=== PATIENT | male | born 1980 | race Caucasian/White ===

== ENCOUNTER 2017-10-14 12:33 | Emergency (ER) | payer MEDICAID ==
[~2017-10-14] VITALS: Ht 165.1 cm; Wt 77.0 kg
[2017-10-14 13:41] VITALS: BP 134/96
== END 2017-10-14 15:00 | disposition left against medical advice (07) ==
LOC: ER 12:33
DX: Z53.21 Procedure and treatment not carried out due to patient leaving prior to being seen by health care provider (principal)
CPT/HCPCS: 93005; Z7610

== ENCOUNTER 2018-04-07 07:58 | Emergency (ER) | payer MEDICAID ==
[~2018-04-07] VITALS: Ht 165.1 cm; Wt 75.0 kg
[2018-04-07 08:05] VITALS: BP 133/95
== END 2018-04-07 09:21 | disposition left against medical advice (07) ==
LOC: ER 08:50
DX: Z53.21 Procedure and treatment not carried out due to patient leaving prior to being seen by health care provider (principal)

== ENCOUNTER 2018-10-11 22:29 | Emergency (ER) | payer SELFPAY ==
[~2018-10-11] VITALS: Ht 167.6 cm; Wt 77.0 kg
[2018-10-12 01:30] VITALS: BP 138/78
[2018-10-12] MEDS ORDERED: BACITRACIN ZINC OINT UDPKT TOP ONE (01:45)
== END 2018-10-12 01:52 | disposition home or self-care (01) ==
LOC: ER 22:29
DX: S80.861A Insect bite (nonvenomous), right lower leg, initial encounter (principal); F15.10 Other stimulant abuse, uncomplicated; F17.200 Nicotine dependence, unspecified, uncomplicated; W57.XXXA Bitten or stung by nonvenomous insect and other nonvenomous arthropods, initial encounter; Y93.89 Activity, other specified; Y92.89 Other specified places as the place of occurrence of the external cause; Y99.8 Other external cause status
CPT/HCPCS: 99282

== ENCOUNTER 2018-10-18 04:44 | Emergency (ER) | payer OTHER ==
[~2018-10-18] VITALS: Ht 165.1 cm; Wt 77.2 kg
[2018-10-18] MEDS ORDERED: TETANUS, DIPHTHERIA, PERTUSSIS VAC/PF 0.5ML (>7YR OLD) IM ONE (06:45)
[2018-10-18] MEDS ORDERED: IBUPROFEN 600MG TABLET PO ONE (06:45)
[2018-10-18] MEDS ORDERED: LIDOCAINE/EPINEPHR/TETRACAINE 3ML TP ONE (08:00)
[2018-10-18] MEDS ORDERED: BACITRACIN ZINC OINT UDPKT TOP ONE (08:00)
[2018-10-18] MEDS ORDERED: LIDOCAINE HCL 1% 20ML VIAL (Pyxis) INJ INFIL ONE (08:30)
[2018-10-18 09:49] VITALS: BP 101/61
== END 2018-10-18 09:49 | disposition home or self-care (01) ==
LOC: ER 05:05
DX: S01.411A Laceration without foreign body of right cheek and temporomandibular area, initial encounter (principal); S00.83XA Contusion of other part of head, initial encounter; F17.210 Nicotine dependence, cigarettes, uncomplicated; F15.10 Other stimulant abuse, uncomplicated; Y04.0XXA Assault by unarmed brawl or fight, initial encounter; Y00.XXXA Assault by blunt object, initial encounter; Y93.89 Activity, other specified; Y92.89 Other specified places as the place of occurrence of the external cause
CPT/HCPCS: 12011; 70450; 70486; 90471; 90715; 99284; J3490

== ENCOUNTER 2018-10-21 20:12 | Emergency (ER) | payer SELFPAY ==
[~2018-10-21] VITALS: Ht 167.6 cm; Wt 78.0 kg
[2018-10-22 00:20] VITALS: BP 111/85
== END 2018-10-22 01:07 | disposition home or self-care (01) ==
LOC: ER 20:12
DX: L03.116 Cellulitis of left lower limb (principal); L03.115 Cellulitis of right lower limb; F15.10 Other stimulant abuse, uncomplicated; Z87.891 Personal history of nicotine dependence
CPT/HCPCS: 99283